=== PATIENT | female | born 1975 | race Caucasian/White ===

== ENCOUNTER → 2016-11-28 | Outpatient (CLI) | payer OTHER ==
[~2016-11-28] MED LIST: AMOXICILLIN500 MG PO; ANAPROX DS550 MG PO; CIPROFLOXACIN500 MG PO; DARVOCET N 1001 TAB PO; DAYPRO600 M1 PO; DIFLUCAN150 MG PO; IBU-8800 MG PO; MOBIC15 MG PO; MOTRIN800 MG PO; NKHM; NKHM PO; PERCOCET 325 MG1 TA2 PO; PERCOCET 325 MG1 TA5 PO; PERCOCET 325 MG1 TA6 PO; PYRIDIUM200 MG PO; VICODIN 500 MG-1 TAB PO; ZITHROMAX Z PA250 MG PO
== END | disposition home or self-care (01) ==
LOC: NM 09:49
DX: M54.5 Low back pain (principal); Z85.3 Personal history of malignant neoplasm of breast

== ENCOUNTER 2017-09-16 17:39 | Emergency (ER) | payer OTHER ==
[~2017-09-16] VITALS: Ht 154.9 cm; Wt 45.4 kg
[2017-09-16 17:43] VITALS: BP 108/62
== END 2017-09-16 17:59 | disposition home or self-care (01) ==
LOC: ED 17:39
DX: H61.21 Impacted cerumen, right ear (principal); F17.200 Nicotine dependence, unspecified, uncomplicated; Z88.6 Allergy status to analgesic agent

== ENCOUNTER 2018-01-22 08:20 | Emergency (ER) | payer OTHER ==
[~2018-01-22] VITALS: Wt 45.4 kg
[2018-01-22 08:20] VITALS: BP 124/48
[2018-01-22] MEDS ORDERED: AMOXICILLIN500 M2 PO (09:09)
[2018-01-22] MEDS ORDERED: Motrin,Rufen800 MG PO (09:09)
== END 2018-01-22 09:09 | disposition home or self-care (01) ==
LOC: ED 08:20
DX: K04.7 Periapical abscess without sinus (principal); Z88.6 Allergy status to analgesic agent

== ENCOUNTER 2019-12-22 19:06 | Emergency (ER) | payer OTHER ==
[~2019-12-22] VITALS: Ht 157.4 cm; Wt 45.8 kg
[~2019-12-22 19:06] MED LIST changes: +AMOXICILLIN500 M2 PO; +Motrin,Rufen800 MG PO
[2019-12-22 19:16] VITALS: BP 123/66
[2019-12-22] MEDS ORDERED: Motrin,Rufen800 MG PO (20:39)
== END 2019-12-22 20:41 | disposition home or self-care (01) ==
LOC: ED 19:06
DX: S93.402A Sprain of unspecified ligament of left ankle, initial encounter (principal); Z79.899 Other long term (current) drug therapy; X58.XXXA Exposure to other specified factors, initial encounter; Y93.89 Activity, other specified; Y92.89 Other specified places as the place of occurrence of the external cause; Y99.8 Other external cause status

== ENCOUNTER 2021-12-03 18:13 | Emergency (ER) | payer OTHER ==
[~2021-12-03] VITALS: Ht 152.4 cm; Wt 43.1 kg
[2021-12-03 18:15] VITALS: BP 109/49
[2021-12-03 18:45] LABS: BASO % 0.5 % (0.0-1.0); EOS # 0.1 10*3/uL (0.0-0.4); EOS % 2.1 % (1.0-4.0); LYMPH # 1.9 10*3/uL (1.3-4.4); LYMPH % 31.6 % (27.0-41.0); MEAN CELL VOLUME 87.2 fl (81.0-99.0); MEAN CORPUSCULAR HGB 29.6 pg (27.0-31.0); MEAN CORPUSCULAR HGB CONC 33.9 g/dl (33.0-37.0); MEAN PLATELET VOLUME 8.8 fl (9.6-12.3); MONO # 0.7 10*3/uL (0.1-1.0); MONO % 11.5 % (3.0-9.0); NEUT # 3.2 10*3/uL (2.3-7.9); NEUT % 53.8 % (47.0-73.0); PLATELET COUNT AUTOMATED 257 10*3/uL (130-400); RED BLOOD COUNT 4.36 10*6/uL (4.10-5.10); RED CELL DISTRI WIDTH 13.2 % (0-14.5); WHITE BLOOD COUNT 5.9 10*3/uL (4.8-10.8)
[2021-12-03 18:56] LABS: BUN 12 mg/dl (7-24); CHLORIDE 107 mmol/L (98-107); CREATININE 0.88 mg/dL (0.55-1.02); POTASSIUM 3.9 mmol/L (3.5-5.1); SODIUM 139 mmol/L (136-145)
== END 2021-12-03 20:10 | disposition home or self-care (01) ==
LOC: ED 18:13
PROVIDERS: Emergency Medicine
DX: U07.1 COVID-19 (principal)

== ENCOUNTER → 2022-10-25 | Day surgery (SDC) | payer OTHER ==
[~2022-10-25] VITALS: Ht 162.5 cm; Wt 47.2 kg
[~2022-10-25] MED LIST changes: +COLACE100 MG PO; +HYDROCODONE-AC1 EAC1 PO; +ONDANSETRON HYDR4 M1 PO
[2022-10-25 09:15] VITALS: BP 104/69
[2022-10-25 10:55] VITALS: BP 81/37
[2022-10-25 11:12] VITALS: BP 90/54
[2022-10-25 11:23] VITALS: BP 90/55
[2022-10-25 11:35] VITALS: BP 99/55
== END | disposition home or self-care (01) ==
LOC: SDC 10-22 12:30
PROVIDERS: ATTEND Surgery
DX: L72.0 Epidermal cyst (principal); F17.210 Nicotine dependence, cigarettes, uncomplicated; Z85.3 Personal history of malignant neoplasm of breast; Z90.710 Acquired absence of both cervix and uterus; Z79.899 Other long term (current) drug therapy

== ENCOUNTER 2022-11-15 10:01 | Emergency (ER) | payer OTHER ==
[~2022-11-15] VITALS: Wt 45.8 kg
[2022-11-15 10:08] VITALS: BP 127/68
[2022-11-15 10:29] LABS: BILIRUBIN Negative (Negative); BLOOD 2+ (Negative); CLARITY Cloudy (Clear); COLOR Yellow (Yellow); GLUCOSE Negative (Negative); KETONE Negative (Negative); LEUKO ESTERASE 3+ (Negative); NITRITE Negative (Negative); SPECIFIC GRAVITY <= 1.005 (1.001-1.030); UROBILINOGEN 0.2 E.U./dl (0.0-1.0)
[2022-11-15 10:41] LABS: BACTERIA 2+; WBC 41-50 wbc/hpf (0-5)
[2022-11-15] MEDS ORDERED: CIPRO500 MG PO (10:54)
== END 2022-11-15 11:00 | disposition home or self-care (01) ==
LOC: ED 10:01
PROVIDERS: Emergency Medicine
DX: N39.0 Urinary tract infection, site not specified (principal); Z90.710 Acquired absence of both cervix and uterus; Z98.890 Other specified postprocedural states; Z88.6 Allergy status to analgesic agent

== ENCOUNTER 2023-08-06 12:25 | Emergency (ER) | payer OTHER ==
[~2023-08-06] VITALS: Wt 40.8 kg
[~2023-08-06 12:25] MED LIST changes: +CIPRO500 MG PO
[2023-08-06 13:02] VITALS: BP 121/65
[2023-08-06 13:35] LABS: HEMATOCRIT 38.3 % (37.0-47.0); MEAN CELL VOLUME 87.8 fl (81.0-99.0); MEAN CORPUSCULAR HGB CONC 34.2 g/dl (33.0-37.0); MEAN PLATELET VOLUME 9.1 fl (9.6-12.3); PLATELET COUNT AUTOMATED 457 10*3/uL (130-400); RED BLOOD COUNT 4.36 10*6/uL (4.10-5.10); RED CELL DISTRI WIDTH 12.6 % (0-14.5); WHITE BLOOD COUNT 17.6 10*3/uL (4.8-10.8)
[2023-08-06 13:38] LABS: MANUAL DIFF REFLEX YES
[2023-08-06 13:57] LABS: ALKALINE PHOSPHATASE 102 U/L (46-116); BUN 10 mg/dl (9-23); CHLORIDE 98 mmol/L (98-107); POTASSIUM 3.7 mmol/L (3.4-5.1); TOTAL PROTEIN 7.8 gm/dL (6.0-8.0)
[2023-08-06 13:58] LABS: SGPT/ALT < 7 U/L (5-49)
[2023-08-06 13:59] LABS: PLATELET SUFFICIENCY HIGH (NORMAL); TOTAL CELLS COUNTED 100 #CELLS
[2023-08-06] MEDS ORDERED: AMOX-CLAV 875-1 EACH PO (15:21)
[2023-08-06] MEDS ORDERED: VIBRAMYCIN100 MG PO (15:21)
[2023-08-06] MEDS ORDERED: PREDNISONE20 M1 PO (15:21)
== END 2023-08-06 15:38 | disposition home or self-care (01) ==
LOC: ED 12:25
PROVIDERS: Nurse Practitioner Family
DX: J18.9 Pneumonia, unspecified organism (principal); Z20.822 Contact with and (suspected) exposure to COVID-19; E87.1 Hypo-osmolality and hyponatremia; B34.9 Viral infection, unspecified; R11.0 Nausea; Z88.6 Allergy status to analgesic agent; Z90.13 Acquired absence of bilateral breasts and nipples; Z90.710 Acquired absence of both cervix and uterus; Z98.890 Other specified postprocedural states; Z87.891 Personal history of nicotine dependence

== ENCOUNTER 2024-08-14 09:06 | Emergency (ER) | payer OTHER ==
[~2024-08-14] VITALS: Ht 157.4 cm; Wt 45.4 kg
[~2024-08-14 09:06] MED LIST changes: +AMOX-CLAV 875-1 EACH PO; +PREDNISONE20 M1 PO; +VIBRAMYCIN100 MG PO
[2024-08-14 09:15] VITALS: BP 114/52
[2024-08-14 09:48] LABS: BILIRUBIN Negative (Negative); BLOOD 3+ (Negative); CLARITY Cloudy (Clear); COLOR Dark Yellow (Yellow); GLUCOSE Negative (Negative); KETONE Negative (Negative); LEUKO ESTERASE 3+ (Negative); NITRITE Positive (Negative); PH 5.5 (4.5-8.0); SPECIFIC GRAVITY <= 1.005 (1.001-1.030)
[2024-08-14 10:11] LABS: BACTERIA 3+; EPITHELIAL CELLS 16-20; RBC 41-50 rbc/hpf (0-2); WBC TNTC wbc/hpf (0-5)
[2024-08-14] MEDS ORDERED: Ciprofloxacin Hydrochloride 500 MG TAB PO ONE (10:35)
[2024-08-14] MEDS ORDERED: CIPRO500 MG PO (10:39)
== END 2024-08-14 10:46 | disposition home or self-care (01) ==
LOC: ED 09:06
PROVIDERS: Emergency Medicine
DX: N39.0 Urinary tract infection, site not specified (principal); Z88.6 Allergy status to analgesic agent; Z90.710 Acquired absence of both cervix and uterus; Z90.13 Acquired absence of bilateral breasts and nipples; Z98.890 Other specified postprocedural states